=== PATIENT | female | born 1960 | race Two or more races ===

== ENCOUNTER → 2020-01-09 | Outpatient (CLI) | payer BC | END | disposition home or self-care (01) | LOC: XY 07:33 | PROVIDERS: ATTEND Surgery | DX: E04.1 Nontoxic single thyroid nodule (principal) | CPT/HCPCS: 78014; A9516 ==

== ENCOUNTER → 2020-06-09 | Outpatient (CLI) | payer BC ==
[2020-06-09 15:43] LABS: Albumin 3.4 g/dL (3.4-5.0); Calcium 8.5 mg/dL (8.5-10.1); Potassium 4.2 mmol/L (3.5-5.1)
[2020-06-09 15:46] LABS: BUN/Creatinine Ratio 13.7; Bilirubin, Total 0.4 mg/dL (0.2-1.0); Total Protein 7.7 g/dL (6.4-8.2)
[2020-06-09 15:53] LABS: Free T4 (Free Thyroxine) 0.95 ng/dL (0.89-1.76); T3 Total 1.31 ng/mL (0.60-1.81)
[2020-06-09 15:54] LABS: Free T3 2.65 pg/mL (2.3-4.2)
== END | disposition home or self-care (01) ==
LOC: LAB 15:07
DX: E04.2 Nontoxic multinodular goiter (principal)
CPT/HCPCS: 36415; 80053; 84439; 84443; 84480; 84481

== ENCOUNTER → 2020-07-16 | Outpatient (CLI) | payer BC | END | disposition home or self-care (01) | LOC: US 09:45 | PROVIDERS: ATTEND Physician Assistant | DX: E06.5 Other chronic thyroiditis (principal); E04.2 Nontoxic multinodular goiter | CPT/HCPCS: 76536 ==

== ENCOUNTER → 2020-09-18 | Outpatient (CLI) | payer BC | END | disposition home or self-care (01) | LOC: LAB 12:08 | DX: E04.2 Nontoxic multinodular goiter (principal) | CPT/HCPCS: 36415; 84439; 84443 ==

== ENCOUNTER → 2020-09-24 | Outpatient (CLI) | payer BC | END | disposition home or self-care (01) | LOC: LAB 14:00 | PROVIDERS: ATTEND Physician Assistant | DX: C44.329 Squamous cell carcinoma of skin of other parts of face (principal); C44.91 Basal cell carcinoma of skin, unspecified ==

== ENCOUNTER → 2020-11-18 | Outpatient (CLI) | payer BC | END | disposition home or self-care (01) | LOC: LAB 16:10 | PROVIDERS: ATTEND Nurse Practitioner Family | DX: U07.1 COVID-19 (principal) | CPT/HCPCS: C9803; U0003 ==

== ENCOUNTER → 2021-02-25 | Outpatient (CLI) | payer BC | END | disposition home or self-care (01) | LOC: XY 07:37 | PROVIDERS: ATTEND Physician Assistant | DX: E03.8 Other specified hypothyroidism (principal) | CPT/HCPCS: 78014; A9516 ==

== ENCOUNTER → 2021-05-01 | Outpatient (CLI) | payer BC | END | disposition home or self-care (01) | LOC: LAB 09:30 | PROVIDERS: ATTEND Family Medicine | DX: L57.8 Other skin changes due to chronic exposure to nonionizing radiation (principal); L08.89 Other specified local infections of the skin and subcutaneous tissue; L30.8 Other specified dermatitis; L57.0 Actinic keratosis; D22.9 Melanocytic nevi, unspecified ==